=== PATIENT | female | born 1945 | race Caucasian/White ===

== ENCOUNTER 2018-11-02 11:02 | Emergency (ER) | payer MEDICARE ==
[~2018-11-02] VITALS: Ht 154.9 cm; Wt 63.6 kg
[~2018-11-02 11:02] MED LIST: ACET1TAB12 PO; ATOR20TA86 PO; LOSA50TA64 PO
[2018-11-02] MEDS ORDERED: ASPI81 PO (11:07)
[2018-11-02 13:20] LABS: APPEARANCE,URINE CLEAR (CLEAR); BILIRUBIN,URINE NEGATIVE (NEGATIVE); GLUCOSE, URINE (UA) NEGATIVE (NEGATIVE); KETONES,URINE NEGATIVE (NEGATIVE); LEUKOCYTE ESTERASE ,URINE NEGATIVE (NEGATIVE); NITRATE,URINE NEGATIVE (NEGATIVE); OCCULT BLOOD,URINE SMALL (NEGATIVE); PROTEIN,URINE NEGATIVE (NEGATIVE); UROBILINOGEN,URINE 0.2 mg/dL (<=1.0)
[2018-11-02 13:35] LABS: BACTERIA,URINE None Seen /HPF (None Seen); RBC,URINE 0-2 /HPF (0-2); SQUAMOUS EPITHELIAL CELL,UR Few /LPF (None Seen); WBC,URINE 0-2 /HPF (0-5)
[2018-11-02 13:59] VITALS: BP 159/77
[2018-11-02] MEDS ORDERED: IBUPROFEN 400 MG TABLET PO ONE (14:00)
== END 2018-11-02 15:08 | disposition left against medical advice (07) ==
LOC: EMS 11:04
DX: N34.2 Other urethritis (principal); I10 Essential (primary) hypertension; E78.00 Pure hypercholesterolemia, unspecified; Z79.82 Long term (current) use of aspirin